=== PATIENT | male | born 1960 | race Caucasian/White ===

== ENCOUNTER → 2017-03-29 | Outpatient (CLI) | payer BC ==
[~2017-03-29] MED LIST: SULFUR HEXAFLUORIDE MICROSPHR 25 MG VIAL. IVP ONE
--- NOTE | 2017-03-29 17:49 | PCVCIMAG ---
APPROVED REPORT Study performed: 03/29/2017 15:16:45 EXAM: Comprehensive 2D, Doppler, and color-flow Echocardiogram Patient Location: Echo lab Status: routine Other Information Study Quality: Technically Limited Indications Afib. Obesity. Echo Enhancing Agent Agent(s) / Amount(s) Used: Lumason cc Left Ventricle Left ventricle is not well visualized. Regional wall motion abnormalities cannot be excluded. Unable to assess LV wall thickness. Left ventricular systolic function is probably normal. LVEF is 50-55%. This study is not technically sufficient to allow evaluation of the LV diastolic function. Right Ventricle The right ventricle apex is not well visualized. Right ventricular function cannot be assessed due to poor image quality. Atria Not imaged Not imaged Aortic Valve Not imaged Mitral Valve Grossly normal No obvious mitral insufficiency Tricuspid Valve Not imaged Pulmonic Valve Not imaged Pericardium There is no pericardial effusion. <Conclusion> Extremely limited study. Left ventricular systolic function is probably normal. Regional wall motion abnormalities cannot be excluded. LVEF is 50-55%. Probably no significant regurgitant or stenotic lesions No pericardial effusion
== END | disposition home or self-care (01) ==
LOC: PCVCIMAG 15:11
PROVIDERS: ATTEND Internal Medicine
DX: I48.91 Unspecified atrial fibrillation (principal)
CPT/HCPCS: 93306; Q9950